=== PATIENT | female | born 1955 ===

== ENCOUNTER 2017-02-28 17:49 | Emergency (ER) | payer SELFPAY ==
[~2017-02-28] VITALS: Ht 160 cm; Wt 67.5 kg
[2017-02-28 17:53] VITALS: Ht 160 cm; Wt 67.5 kg
[2017-02-28] MEDS ORDERED: ALBUTEROL 0.083% (NEB) 2.5 MG/3 ML AMP HHN STA (19:26)
[2017-02-28] MEDS ORDERED: predniSONE 20 MG TAB PO ONE (19:30)
--- NOTE | 2017-02-28 20:34 | RADRPT ---
PROCEDURE: Portable chest x-ray. CLINICAL INDICATION: Shortness of breath. TECHNIQUE: Portable AP view of the chest. COMPARISON: None. FINDINGS: There is minimal bibasilar atelectasis. No pulmonary edema or conolidation is identified. The card iac silhouette is magnified. There are mild aortic calcifications. No pleural effusion is seen. Th ere is no pneumothorax. IMPRESSION: 1. No evidence of acute cardiopulmonary disease. 2. Aortic atherosclerosis. RPTAT: HTAR .Stanislaw Bishop MD, Date Time Electronically viewed and signed by .Stanislaw Bishop MD, on 02/28/2017 20:34 .R/
[2017-02-28] MEDS ORDERED: ALBU18HF INHALATION (20:42)
[2017-02-28] MEDS ORDERED: PRED20TA PO (20:42)
[2017-02-28] MEDS ORDERED: AZIT250T94 PO (20:42)
--- NOTE | 2017-02-28 20:44 | ERD ---
ER Documentation Chief Complaint Date/Time DATE: 02/28/17 TIME: 20:43 Chief Complaint cough x 4 weeks HPI 8-year-old female complains of cough and possible wheeze for last 4 weeks. She has some productive sputum. She denies fevers, anterior chest pain, vomiting, abdominal pain. She has not been seen for this before. She denies any history of asthma. ROS All systems reviewed and are negative except as per history of present illness. Medications Home Meds Active Scripts Albuterol Sulfate* (Ventolin HFA*) 18 Gm Hfa.aer.ad, 2 PUFF INHALATION Q4H, #1 INHALER Prov:ASHOK ARRINGTON MD 02/28/17 Prednisone* (Prednisone*) 20 Mg Tab, 40 MG PO DAILY for 5 Days, TAB Prov:ASHOK ARRINGTON MD 02/28/17 Azithromycin* (Zithromax*) 250 Mg Tablet, 250 MG PO .ZPACK DIRECTED, #6 TAB TAKE 500 MG (2 TABS) THE FIRST DAY THEN 250 MG (1 TAB) DAYS 2-5 Prov:ASHOK ARRINGTON MD 02/28/17 Allergies Allergies: Coded Allergies: No Known Allergy (Unverified , 02/28/17) PMhx/Soc Anesthesia Reaction: No Hx Neurological Disorder: No Hx Respiratory Disorders: No Hx Cardiac Disorders: Yes (HTN) Hx Psychiatric Problems: No Hx Miscellaneous Medical Probl: Yes (SINUSITIS) Hx Alcohol Use: No Hx Substance Use: No Hx Tobacco Use: No Smoking Status: Never smoker Physical Exam Vitals Vital Signs Date Time Temp Pulse Resp B/P Pulse Ox O2 Delivery O2 Flow Rate FiO2 02/28/17 19:40 83 20 97 21 02/28/17 17:53 98.3 92 18 167/79 98 Physical Exam Const: [] Alert, [id number]. Head: Atraumatic Eyes: Normal Conjunctiva ENT: Normal External Ears, Nose and Mouth. No JVD per Neck: Full range of motion..~ No meningismus. Resp: Clear to auscultation bilaterally. Scattered rhonchi and mild wheezing. No retractions or rales appreciated. Cardio: Regular rate and rhythm, no murmurs Abd: Soft, non tender, non distended. Normal bowel sounds Skin: No petechiae or rashes Back: No midline or flank tenderness Ext: No cyanosis, or edema Neur: Awake and alert Psych: Normal Mood and Affect Results 24 hrs Current Medications Medications (Trade) Dose Ordered Sig/Brennen Route PRN Reason Start Time Stop Time Status Last Admin Dose Admin Albuterol (Proventil 0.083% (Neb)) 5 mg ONCE STAT HHN 02/28/17 19:26 02/28/17 19:28 DC 02/28/17 19:35 Prednisone (Prednisone) 60 mg ONCE ONCE PO 02/28/17 19:30 02/28/17 19:31 DC 02/28/17 19:41 Procedures/MDM Chest X-ray 1V Interpreted by me: Soft Tissue: No acute abnormalities Bones: No acute abnormalities Mediastinum/Cardiac Silhouette/Lungs: [No acute abnormalities]. Impression- normal 1 view chest x-ray Patient was given prednisone 60 mg of mouth and albuterol treatment 1. Patient improved breath sounds at the office duration and treatment. Patient signs and symptoms of bronchitis with wheezing. She will be treated with Zithromax, short course prednisone Ventolin. There is no evidence of CHF. The patient was stable with no new complaints during the ER course. Clinically, there is no current evidence to suggest meningitis, sepsis, acute abdomen, pneumonia, acute coronary syndrome, pulmonary embolism, or any other emergent condition appearing to require further evaluation or hospitalization. The patient should certainly return for any new or worsening symptoms per the aftercare instructions. They should otherwise follow-up with her primary care doctor for reevaluation this week. Departure Diagnosis: Primary Impression: URI, acute Additional Impression: Cough Condition: Stable Patient Instructions: Bronchitis With Wheezing (Adult) [facility] Usted se ernst hecho un examen mdico de control que le indica que no est en ag condicin que requiera tratamiento urgente en el Departamento de Emergencia. Un estudio ms profundo y el tratamiento de bajwa condicin pueden esperar sin ningn riesgo hasta que usted sea atendida/o en el consultorio de bajwa mdico o ag cl ji. Es responsabilidad suya arreglar ag aki para el seguimiento del morro. MANEJO DE CONDICIONES NO URGENTES EN EL FUTURO 1) Si usted tiene un mdico de atencin primaria: Usted debera llamar a bajwa mdico de atencin primaria antes de venir al departamento de emergencia. Despus de las horas de consultorio, bajwa doctor o bajwa asociado/a est disponible por telfono. El mdico o enfermero de yesi en el servicio telefnico puede asesorarle por dewey medio para atender el problema, o morro contrario se puede programar ag aki. 2) Si usted no tiene un mdico de atencin primaria: Llame al mdico o clnica de referencia que aparece abajo jose las horas de consultorio para hacer ag aki para que le vean. CLINICAS: [facility] [phone] [id number] [facility] [phone] [facility] [phone] [facility] [facility] [phone] [facility]. [facility] [phone] [address] [facility] [phone] [address] Additional Instructions: X-ray normal. Cheque otro vez con bajwa doctor primario en el proximo weathers or regresa para mas o nueva simptomas. ASHOK ARRINGTON MD Feb 28, 2017 20:44
[2017-02-28 21:11] VITALS: BP 154/86; PULSE 75; RESP 19; TEMP 98.2
== END 2017-02-28 21:11 | disposition home or self-care (01) ==
LOC: FTE 17:49
DX: J06.9 Acute upper respiratory infection, unspecified (principal); I10 Essential (primary) hypertension
CPT/HCPCS: 71010; 94664; 99284; J7512